=== PATIENT | female | born 1995 | race Native Hawaiian/Other Pacific Islander ===

== ENCOUNTER 2018-04-14 20:33 | Emergency (ER) | payer SELFPAY ==
[2018-04-14 22:52] LABS: A TYPE INFLUENZA AG NEGATIVE (NEGATIVE); B INFLUENZA AG NEGATIVE (NEGATIVE)
[2018-04-14] MEDS ORDERED: ACETAMINOPHEN WITH CODEINE #3 TABLET PO STA (23:01)
--- NOTE | 2018-04-14 23:01 | ER Document Report ---
ED Flu Like - General Chief Complaint: Flu Symptoms Stated Complaint: SORE THROAT Time Seen by Provider: 04/14/18 21:52 Mode of Arrival: Ambulatory Information source: Patient Notes: Patient is a 22-year-old female comes emergency room complaining of fever times 3 days with a cough and vomiting. Patient states she coughs so hard on the way over here that she vomited in her car. She has had a stuffy congested nose and a sore throat for the past 3 days. She states her fevers were just because she felt warm she did not take an actual temperature. Patient denies smoking her last menstrual period was April 01 and she is currently on no control. TRAVEL OUTSIDE OF THE [place] IN LAST 30 DAYS: No - HPI Onset: Other - 3 days Timing/Duration: Persistent Quality of pain: Achy Severity: Moderate Pain Level: 3 Shortness of breath: Mild Associated symptoms: Chills, Nonproductive cough, Nausea, Vomiting, Rhinnorhea, Sinus pain/drainage, Shortness of breath, Sore throat Similar symptoms previously: No Recently seen / treated by doctor: No - Related Data Allergies/Adverse Reactions: No Known Allergies Allergy (Unverified 04/14/18 20:39) Past Medical History - General Information source: Patient - Social History Smoking Status: Never Smoker Cigarette use (# per day): No Chew tobacco use (# tins/day): No Smoking Education Provided: No Frequency of alcohol use: None Drug Abuse: None Lives with: Spouse/Significant other Family History: Reviewed & Not Pertinent Patient has suicidal ideation: No Patient has homicidal ideation: No Renal/ Medical History: Denies: Hx Peritoneal Dialysis Review of Systems - Review of Systems Constitutional: Fever, Malaise EENT: Nose congestion, Throat pain Cardiovascular: No symptoms reported Respiratory: Cough, Short of breath, Wheezing Gastrointestinal: Vomiting Genitourinary: No symptoms reported Female Genitourinary: No symptoms reported Musculoskeletal: No symptoms reported Skin: No symptoms reported Hematologic/Lymphatic: No symptoms reported Neurological/Psychological: No symptoms reported -: Yes All other systems reviewed and negative Physical Exam - Vital signs Vitals: Temp Pulse Resp BP Pulse Ox 98.3 F 83 16 125/63 99 04/14/18 20:40 04/14/18 20:40 04/14/18 20:40 04/14/18 20:40 04/14/18 20:40 Interpretation: Normal - Notes Notes: PHYSICAL EXAMINATION: GENERAL: Patient is a well-nourished well-developed 22-year-old female who is in no apparent distress on physical exam tonight. Patient appears somewhat uncomfortable but not ill-appearing. HEAD: Atraumatic, normocephalic. EYES: Pupils equal round and reactive to light, extraocular movements intact, conjunctiva are normal. ENT: Examination head and upper airway showed nasal mucosa to be erythematous and edematous with some rhinorrhea noted. Rhinorrhea is clear in color. It is moderately thick. Further examination shows some mild tenderness to palpation on the frontal maxillary sinuses. Bilateral ears are inspected and external canals have some cerumen in them but they do not obscured the TMs. The TMs appear slightly bulging with some erythema around the borders. The landmarks are slightly obscured with dullness. And air-fluid levels noted. Further evaluation of the oral cavity shows posterior pharynx to have moderate erythema there are bilateral tonsils that are appear somewhat inflamed and enlarged. There is no encroachment upon the uvula which is also erythematous and slightly enlarged. There is no exudate noted in any areas. NECK: Normal range of motion, supple without lymphadenopathy Auscultation patient's lung niño show she has bilateral breath sounds breath sounds moderately increased throughout with a faint inspiratory expiratory wheeze noted. There is no rhonchi or rales heard. HEART: Regular rate and rhythm without murmurs ABDOMEN: Soft, nontender, nondistended abdomen. No guarding, no rebound. No masses appreciated. Female : deferred Musculoskeletal: Normal range of motion, no pitting or edema. No cyanosis. NEUROLOGICAL: Normal speech, normal gait. Normal sensory, motor exams PSYCH: Normal mood, normal affect. SKIN: Warm, Dry, normal turgor, no rashes or lesions noted. Course - Re-evaluation Re-evalutation: 04/15/18 01:59 I discussed with patient that if her strep came back negative which it was probably certain it would that we would treat her for a viral type of a presentation pharyngitis with wheeze. That is exactly what did transpire. I have given patient a steroid taper for the wheeze and the inflammation of the nose and throat. And Sudafed to dry up the head and a Tylenol 3 tablets for cough suppression. Patient is in agreement with this and will go home and go to bed. - Vital Signs Vital signs: Temp Pulse Resp BP Pulse Ox 98.0 F 84 16 120/71 99 04/14/18 23:22 04/14/18 23:22 04/14/18 23:22 04/14/18 23:22 04/14/18 23:22 Discharge - Discharge Clinical Impression: Upper respiratory infection, viral Condition: Stable Disposition: HOME, SELF-CARE Instructions: Acetaminophen, Viral Syndrome ([facility]) Additional Instructions: As informed you that if the swabs came back negative we are going to treat you for a viral upper respiratory infection. This is a type of thing he does not need antibiotics. We treat the symptoms first and the rest should fall in order. Most will run their course on their own within 4-5 days. Given that you are having such difficult time with this we will put you on a low steroid taper for the inflammation in your throat and some of the all-time medication called Sudafed to dry eyes everything up really good. You can use nasal saline 3-4 times a day to keep the nose moist and her secretions thin. I am also placing him on some Tylenol 3 these are Tylenol with codeine pills they worked excellent for the cough which would stop you from the getting into the vomiting. You can take 1-2 tablets every 6 hours as needed for the cough. Should you have any concerns or problems return to ER for recheck. Prescriptions: Acetaminophen with Codeine [Tylenol #3 Tablet] 1 each PO Q6 PRN #16 tablet PRN Reason: Prednisone 5 mg PO ASDIR 6 Days #1 tab.ds.pk Pseudoephedrine HCl [Sudafed 12 Hour] 120 mg PO BID #20 tablet.er Forms: Parent Work Note, Return to Work Referrals: [facility] [NO LOCAL MD] - Follow up as needed
[2018-04-14] MEDS ORDERED: PREDNISONE 20 MG TABLET PO ONE (23:02)
[2018-04-14] MEDS ORDERED: ONDANSETRON 4 MG TAB.RAPDIS PO ONE (23:02)
[2018-04-14 23:23] VITALS: BP 120/71
== END 2018-04-14 23:23 | disposition home or self-care (01) ==
LOC: ER 20:33
DX: J06.9 Acute upper respiratory infection, unspecified (principal); B97.89 Other viral agents as the cause of diseases classified elsewhere; J02.9 Acute pharyngitis, unspecified; R05 Cough; R09.81 Nasal congestion; R11.2 Nausea with vomiting, unspecified; J34.89 Other specified disorders of nose and nasal sinuses; R06.02 Shortness of breath; R53.81 Other malaise; R50.9 Fever, unspecified; R06.2 Wheezing; H61.23 Impacted cerumen, bilateral
CPT/HCPCS: 99283; 87070; 87880; 87077; 87804; S0119; J7512

== ENCOUNTER 2018-06-27 12:28 | Emergency (ER) | payer OTHER, MEDICAID ==
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
[2018-06-27 13:34] LABS: ABSOLUTE EOSINOPHILS # (AUTO) 0.1 10^3/uL (0.0-0.6); ABSOLUTE LYMPHOCYTES (AUTO) 1.8 10^3/uL (0.5-4.7); ABSOLUTE MONOCYTES (AUTO) 0.3 10^3/uL (0.1-1.4); BASOPHILS % (AUTO) 0.3 % (0-2); HEMATOCRIT 39.9 % (36.0-47.0); HEMOGLOBIN 13.6 g/dL (12.0-15.5); LYMPHOCYTES % (AUTO) 28.9 % (13-45); MEAN CORPUSCULAR HGB CONC 34.1 g/dL (32.0-36.0); MEAN CORPUSCULAR VOLUME 82 fl (80-97); MONOCYTES % (AUTO) 5.5 % (3-13); PLATELET COUNT 267 10^3/uL (150-450); RED BLOOD COUNT 4.85 10^6/uL (3.72-5.28); RED CELL DISTRIBUTION WIDTH 14.3 % (11.5-14.0); SEGMENTED NEUTROPHILS % (AUTO) 64.3 % (42-78); TOTAL CELLS COUNTED % (AUTO) 100 %; WHITE BLOOD COUNT 6.2 10^3/uL (4.0-10.5)
[2018-06-27 13:40] LABS: APPEARANCE,URINE CLOUDY; BILIRUBIN,URINE NEGATIVE (NEGATIVE); COLOR,URINE RED; GLUCOSE, URINE NEGATIVE (NEGATIVE); KETONES,URINE NEGATIVE (NEGATIVE); LEUKOCYTE ESTERASE,URINE MODERATE (NEGATIVE); NITRITE,URINE NEGATIVE (NEGATIVE); PROTEIN,URINE 100 mg/dL (NEGATIVE); URINE SPECIFIC GRAVITY 1.027
[2018-06-27 13:51] LABS: ALANINE AMINOTRANSFERASE 31 U/L (9-52); ALBUMIN 4.9 g/dL (3.5-5.0); ALKALINE PHOSPHATASE 70 U/L (38-126); ANION GAP 9 (5-19); ASPARTATE AMINO TRANSFERASE 21 U/L (14-36); BILIRUBIN,DIRECT 0.1 mg/dL (0.0-0.4); BILIRUBIN,TOTAL 0.5 mg/dL (0.2-1.3); BLOOD UREA NITROGEN 16 mg/dL (7-20); CALCIUM 10.1 mg/dL (8.4-10.2); CARBON DIOXIDE 28 mmol/L (22-30); CHLORIDE 108 mmol/L (98-107); GLUCOSE 107 mg/dL (75-110); POTASSIUM 4.1 mmol/L (3.6-5.0)
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
[2018-06-27 15:35] VITALS: BP 122/76
== END 2018-06-27 15:35 | disposition home or self-care (01) ==
LOC: ER 12:28
DX: Z04.1 Encounter for examination and observation following transport accident (principal); N94.6 Dysmenorrhea, unspecified; R10.2 Pelvic and perineal pain
CPT/HCPCS: 36415; 76857; 80053; 81001; 81025; 85025; 87086; 93976; 99284

== ENCOUNTER 2018-11-01 19:12 | Emergency (ER) | payer SELFPAY ==
[2018-11-01] MEDS ORDERED: IBUPROFEN 800 MG TABLET PO ONE (20:11)
--- NOTE | 2018-11-01 20:12 | ER Document Report ---
ED Medical Screen (RME) - General Chief Complaint: Vaginal Bleeding Stated Complaint: CRAMPING Time Seen by Provider: 11/01/18 20:08 Mode of Arrival: Ambulatory Information source: Patient Notes: Patient presents to the emergency department with complaints of extreme cramping for the past 2 weeks. Reports it started and stopped. She reports cramping to the right side and moved to the left side. She reports urinary frequency. Denies . No other complaints such as fever vomiting diarrhea. I have greeted and performed a rapid initial assessment of this patient. A comprehensive ED assessment and evaluation of the patient, analysis of test results and completion of the medical decision making process will be conducted by additional ED providers. Dictation of this chart was performed using voice recognition software; therefore, there may be some unintended grammatical errors. TRAVEL OUTSIDE OF THE [place] IN LAST 30 DAYS: No - Related Data Allergies/Adverse Reactions: No Known Allergies Allergy (Unverified 04/14/18 20:39) Past Medical History - General Last Menstrual Period: 10/10/18 - Social History Chew tobacco use (# tins/day): No Frequency of alcohol use: Rare Renal/ Medical History: Denies: Hx Peritoneal Dialysis Physical Exam - Vital signs Vitals: Temp Pulse Resp BP Pulse Ox 98.6 F 84 16 129/59 H 99 11/01/18 19:29 11/01/18 19:29 11/01/18 19:29 11/01/18 19:29 11/01/18 19:29 Course - Vital Signs Vital signs: Temp Pulse Resp BP Pulse Ox 98.6 F 84 16 129/59 H 99 11/01/18 19:29 11/01/18 19:29 11/01/18 19:29 11/01/18 19:29 11/01/18 19:29
[2018-11-01 20:43] LABS: ABSOLUTE EOSINOPHILS # (AUTO) 0.1 10^3/uL (0.0-0.6); ABSOLUTE LYMPHOCYTES (AUTO) 2.5 10^3/uL (0.5-4.7); ABSOLUTE MONOCYTES (AUTO) 0.6 10^3/uL (0.1-1.4); ABSOLUTE NEUT (AUTO) 5.5 10^3/uL (1.7-8.2); BASOPHILS % (AUTO) 0.4 % (0-2); EOSINOPHILS % (AUTO) 1.3 % (0-6); HEMATOCRIT 39.9 % (36.0-47.0); HEMOGLOBIN 13.1 g/dL (12.0-15.5); LYMPHOCYTES % (AUTO) 28.7 % (13-45); MEAN CORPUSCULAR HGB CONC 32.8 g/dL (32.0-36.0); MEAN CORPUSCULAR VOLUME 82 fl (80-97); MONOCYTES % (AUTO) 6.4 % (3-13); PLATELET COUNT 294 10^3/uL (150-450); RED BLOOD COUNT 4.84 10^6/uL (3.72-5.28); RED CELL DISTRIBUTION WIDTH 13.9 % (11.5-14.0); SEGMENTED NEUTROPHILS % (AUTO) 63.2 % (42-78); TOTAL CELLS COUNTED % (AUTO) 100 %; WHITE BLOOD COUNT 8.7 10^3/uL (4.0-10.5)
[2018-11-01 21:06] LABS: APPEARANCE,URINE CLEAR; BILIRUBIN,URINE NEGATIVE (NEGATIVE); COLOR,URINE YELLOW; GLUCOSE, URINE NEGATIVE (NEGATIVE); KETONES,URINE NEGATIVE (NEGATIVE); LEUKOCYTE ESTERASE,URINE LARGE (NEGATIVE); NITRITE,URINE NEGATIVE (NEGATIVE); PROTEIN,URINE NEGATIVE (NEGATIVE); URINE SPECIFIC GRAVITY 1.022
[2018-11-01 21:10] LABS: ALANINE AMINOTRANSFERASE 18 U/L (9-52); ALBUMIN 4.6 g/dL (3.5-5.0); ALKALINE PHOSPHATASE 68 U/L (38-126); ANION GAP 9 (5-19); ASPARTATE AMINO TRANSFERASE 19 U/L (14-36); BILIRUBIN,DIRECT 0.2 mg/dL (0.0-0.4); BILIRUBIN,TOTAL 0.3 mg/dL (0.2-1.3); BLOOD UREA NITROGEN 9 mg/dL (7-20); CALCIUM 9.9 mg/dL (8.4-10.2); CARBON DIOXIDE 26 mmol/L (22-30); CHLORIDE 105 mmol/L (98-107); GLUCOSE 98 mg/dL (75-110); POTASSIUM 3.7 mmol/L (3.6-5.0); SODIUM 139.6 mmol/L (137-145); TOTAL PROTEIN 7.6 g/dL (6.3-8.2)
[2018-11-01] MEDS ORDERED: CEFTRIAXONE 1 GM/D5W RTU 1 GM/50 ML RTUPB IV ONE (22:24)
--- NOTE | 2018-11-01 22:26 | ER Document Report ---
ED GI/ - General Chief Complaint: Vaginal Bleeding Stated Complaint: CRAMPING Time Seen by Provider: 11/01/18 20:08 Primary Care Provider: ANNA SULLIVAN MD [ACTIVE STAFF] - Follow up as needed KAREN ASENCIO MD [Primary Care Provider] - Follow up as needed Mode of Arrival: Ambulatory Information source: Patient TRAVEL OUTSIDE OF THE [place] IN LAST 30 DAYS: No - HPI Patient complains to provider of: Vaginal bleeding, Other - Lower abdominal cramps. Timing/Duration: Gradual Quality of pain: Cramping Severity at maximum: Mild Severity in ED: Mild Pain Level: Denies Vaginal bleeding (Compared to normal period): Spotting OB ultrasound done: No vitamins taken: No Sexual history: Active Associated symptoms: None Exacerbated by: Denies Relieved by: Denies Similar symptoms previously: No Recently seen / treated by doctor: No - Related Data Allergies/Adverse Reactions: No Known Allergies Allergy (Unverified 04/14/18 20:39) Past Medical History - General Information source: Patient Last Menstrual Period: 10/10/18 - Social History Smoking Status: Never Smoker Chew tobacco use (# tins/day): No Frequency of alcohol use: Rare Family History: Reviewed & Not Pertinent Patient has suicidal ideation: No Patient has homicidal ideation: No Renal/ Medical History: Denies: Hx Peritoneal Dialysis Review of Systems - Review of Systems Constitutional: No symptoms reported EENT: No symptoms reported Cardiovascular: No symptoms reported Respiratory: No symptoms reported Gastrointestinal: No symptoms reported Genitourinary: No symptoms reported Female Genitourinary: Vaginal bleeding Musculoskeletal: No symptoms reported Skin: No symptoms reported Hematologic/Lymphatic: No symptoms reported Neurological/Psychological: No symptoms reported -: Yes All other systems reviewed and negative Physical Exam - Vital signs Vitals: Temp Pulse Resp BP Pulse Ox 98.6 F 84 16 129/59 H 99 11/01/18 19:29 11/01/18 19:29 11/01/18 19:29 11/01/18 19:29 11/01/18 19:29 Interpretation: Normal - General General appearance: Appears well, Alert - HEENT Head: Normocephalic, Atraumatic Eyes: Normal Pupils: PERRL - Respiratory Respiratory status: No respiratory distress Chest status: Nontender Breath sounds: Normal Chest palpation: Normal - Cardiovascular Rhythm: Regular Heart sounds: Normal auscultation Murmur: No - Abdominal Inspection: Normal Distension: No distension Bowel sounds: Normal Tenderness: Nontender Organomegaly: No organomegaly - Genitourinary External exam: Normal Speculum exam: Normal, Cervix closed. No: Vaginal discharge, Vaginal laceration s Vaginal bleeding: None Bimanuel exam: Normal. 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 - Back Back: Normal, Nontender - Extremities General upper extremity: Normal inspection, Nontender, Normal color, Normal ROM, Normal temperature General lower extremity: Normal inspection, Nontender, Normal color, Normal ROM, Normal temperature, Normal weight bearing. No: Lee's sign - Neurological Neuro grossly intact: Yes Cognition: Normal Orientation: AAOx4 [place] Coma Scale Eye Opening: Spontaneous [place] Coma Scale Verbal: Oriented [place] Coma Scale Motor: Obeys Commands [place] Coma Scale Total: 15 Speech: Normal Motor strength normal: LUE, RUE, LLE, RLE Sensory: Normal - Psychological Associated symptoms: Normal affect, Normal mood - Skin Skin Temperature: Warm Skin Moisture: Dry Skin Color: Normal Course - Vital Signs Vital signs: Temp Pulse Resp BP Pulse Ox 98.6 F 88 16 126/72 H 100 11/01/18 19:29 11/02/18 01:48 11/02/18 01:48 11/02/18 01:48 11/02/18 01:48 - Laboratory Result Diagrams: 11/01/18 20:26 11/01/18 20:26 Laboratory results interpreted by me: 11/01/18 11/01/18 11/01/18 20:26 20:26 20:26 Serum HCG, Qual POSITIVE H Beta HCG, Quant 1498.80 H Urine Urobilinogen 8.0 H Ur Leukocyte Esterase LARGE H - Diagnostic Test Radiology reviewed: Reports reviewed Discharge - Discharge Clinical Impression: Early stage of , , threatened, early UTI (urinary tract infection) Qualifiers: Urinary tract infection type: acute cystitis Hematuria presence: without hematuria Qualified Code(s): N30.00 - Acute cystitis without hematuria Condition: Stable Disposition: HOME, SELF-CARE Instructions: ([facility]), Threatened Abortions ( Patients), Urinary Tract Infection ([facility]) Additional Instructions: Please follow-up with the poultry hanger Dr. Anna Sullivan on Matthias morning. Return to the emergency room if your condition worsens. Prescriptions: Cephalexin Monohydrate [Keflex 500 mg Capsule] 500 mg PO Q8H 10 Days #30 capsule Pnv No.95/Ferrous Fum/Folic AC [ Vitamins Tablet] 1 each PO DAILY #30 tablet Promethazine HCl [Phenergan 25 mg Tablet] 25 mg PO Q8H PRN #15 tablet PRN Reason: nausea and vomiting Referrals: KAREN ASENCIO MD [Primary Care Provider] - Follow up as needed ANNA SULLIVAN MD [ACTIVE STAFF] - Follow up as needed
[2018-11-01 22:38] LABS: PROTHROMBIN TIME 13.2 SEC (11.4-15.4)
[2018-11-01 22:39] LABS: PARTIAL THROMBOPLASTIN TIME 29.6 SEC (23.5-35.8)
[2018-11-01 23:04] LABS: RBCS (WET MOUNT) NO RBCS SEEN; T.VAGINALIS (WET MOUNT) NO TRICHOMONAS SEEN; WBCS (WET MOUNT) NO WBCS SEEN; YEAST (WET MOUNT) NO YEAST SEEN
--- NOTE | 2018-11-01 23:26 | RADIOLOGY REPORT (SQ) ---
US PELVIS EXAM DATE: 11/01/2018 10:24 PM CDT HISTORY: Early . Pelvic pain. COMPARISON: None. TECHNIQUE: Grayscale, color Doppler, and spectral Doppler ultrasound images of the pelvis were obtained. FINDINGS: There is an intrauterine gestational sac with a mean sac diameter of 0.46 cm corresponding to 5 weeks 2 days of . No yolk sac or pole is seen at this time. The ovaries are normal in size and contain normal follicles. Normal color Doppler blood flow is seen in both ovaries. The cervix is 3.3 cm in length. IMPRESSION: Early intrauterine gestational sac corresponding to 5 weeks 2 days of . No yolk sac or pole is seen at this time. Findings may represent early . Recommend short-term follow-up ultrasound imaging.
[2018-11-01] MEDS ORDERED: CEPHALEXIN 500 MG CAPSULE PO ONE (23:59)
[2018-11-02 00:44] LABS: CHLAM PCR NOT DETECTED (NOT DETECT)
[2018-11-02 01:49] VITALS: BP 126/72
== END 2018-11-02 01:48 | disposition home or self-care (01) ==
LOC: ER 19:12
DX: O23.11 Infections of bladder in pregnancy, first trimester (principal); N30.00 Acute cystitis without hematuria; O20.0 Threatened abortion; O26.891 Other specified pregnancy related conditions, first trimester; R10.30 Lower abdominal pain, unspecified; Z3A.00 Weeks of gestation of pregnancy not specified
CPT/HCPCS: 36415; 76817; 80053; 81001; 84702; 84703; 85025; 85610; 85730; 86900; 86901; 87086; 87088; 87186; 87210; 87491; 87591; 93976; 99284

== ENCOUNTER 2018-11-10 18:40 | Emergency (ER) | payer SELFPAY ==
[2018-11-10 18:45] VITALS: BP 129/60
--- NOTE | 2018-11-10 19:53 | ER Document Report ---
ED Medical Screen (RME) - General Chief Complaint: OB Problem (<20wks) Stated Complaint: VAGINAL BLEEDING Time Seen by Provider: 11/10/18 19:47 Primary Care Provider: KAREN ASENCIO MD [Primary Care Provider] - Follow up as needed Mode of Arrival: Ambulatory Information source: Patient Notes: This 23-year-old female G1, P0 presents today with complaints of vaginal bleeding. Patient reports she is been bleeding for the last 3 days. She reports she was just standing there today at the drive-through and she had a gush of blood and some clots. Denies abdominal cramping. Denies other symptoms such as fever vomiting diarrhea. Denies trauma. I have greeted and performed a rapid initial assessment of this patient. A comprehensive ED assessment and evaluation of the patient, analysis of test results and completion of the medical decision making process will be conducted by additional ED providers. Dictation of this chart was performed using voice recognition software; therefore, there may be some unintended grammatical errors. TRAVEL OUTSIDE OF THE [place] IN LAST 30 DAYS: No - Related Data Allergies/Adverse Reactions: No Known Allergies Allergy (Verified 11/10/18 18:41) Past Medical History Renal/ Medical History: Denies: Hx Peritoneal Dialysis Physical Exam - Vital signs Vitals: Temp Pulse Resp BP Pulse Ox 98.1 F 81 16 129/60 H 98 11/10/18 18:44 11/10/18 18:44 11/10/18 18:44 11/10/18 18:44 11/10/18 18:44 Course - Vital Signs Vital signs: Temp Pulse Resp BP Pulse Ox 98.1 F 81 16 129/60 H 98 11/10/18 18:44 11/10/18 18:44 11/10/18 18:44 11/10/18 18:44 11/10/18 18:44 Doctor's Discharge - Discharge Referrals: KAREN ASENCIO MD [Primary Care Provider] - Follow up as needed
[2018-11-10 20:19] LABS: ABSOLUTE EOSINOPHILS # (AUTO) 0.1 10^3/uL (0.0-0.6); ABSOLUTE LYMPHOCYTES (AUTO) 2.4 10^3/uL (0.5-4.7); ABSOLUTE MONOCYTES (AUTO) 0.4 10^3/uL (0.1-1.4); ABSOLUTE NEUT (AUTO) 5.7 10^3/uL (1.7-8.2); BASOPHILS % (AUTO) 0.3 % (0-2); HEMATOCRIT 38.6 % (36.0-47.0); HEMOGLOBIN 12.8 g/dL (12.0-15.5); LYMPHOCYTES % (AUTO) 27.5 % (13-45); MEAN CORPUSCULAR HEMOGLOBIN 27.5 pg (27.0-33.4); MEAN CORPUSCULAR HGB CONC 33.2 g/dL (32.0-36.0); MEAN CORPUSCULAR VOLUME 83 fl (80-97); MONOCYTES % (AUTO) 4.9 % (3-13); PLATELET COUNT 245 10^3/uL (150-450); RED BLOOD COUNT 4.66 10^6/uL (3.72-5.28); RED CELL DISTRIBUTION WIDTH 14.3 % (11.5-14.0); SEGMENTED NEUTROPHILS % (AUTO) 66.3 % (42-78); TOTAL CELLS COUNTED % (AUTO) 100 %; WHITE BLOOD COUNT 8.5 10^3/uL (4.0-10.5)
[2018-11-10 20:37] LABS: ALANINE AMINOTRANSFERASE 36 U/L (9-52); ALBUMIN 4.8 g/dL (3.5-5.0); ALKALINE PHOSPHATASE 70 U/L (38-126); ANION GAP 12 (5-19); ASPARTATE AMINO TRANSFERASE 29 U/L (14-36); BILIRUBIN,DIRECT 0.1 mg/dL (0.0-0.4); BILIRUBIN,TOTAL 0.4 mg/dL (0.2-1.3); BLOOD UREA NITROGEN 13 mg/dL (7-20); CALCIUM 9.6 mg/dL (8.4-10.2); CARBON DIOXIDE 24 mmol/L (22-30); CHLORIDE 104 mmol/L (98-107); GLUCOSE 96 mg/dL (75-110); POTASSIUM 3.9 mmol/L (3.6-5.0); SODIUM 140.2 mmol/L (137-145); TOTAL PROTEIN 7.9 g/dL (6.3-8.2)
--- NOTE | 2018-11-10 22:19 | RADIOLOGY REPORT (SQ) ---
EXAM DESCRIPTION: US TRANSVAGINAL COMPLETED DATE/TME: 11/10/2018 19:51 CLINICAL HISTORY: 23 years, Female, vag bleed preg COMPARISON: Prior study from 11/01/2018 TECHNIQUE: Axial 2-D grayscale images of the pelvis were performed. Doppler was utilized. LIMITATIONS: None. FINDINGS: Uterus measures 9.2 x 5.4 x 6.8 cm in size. A single intrauterine gestational sac is identified. Mean sac diameter is 1.09 cm for an estimated gestational age of five weeks and six days. A yolk sac is present though a pole is not currently visible. Cervix is closed, measuring 3.3 cm in length. Right ovary measures 3.1 x 2.5 x 3.5 cm in size. It demonstrates normal echogenicity as well as normal low resistance arterial waveforms/venous flow. The left ovary was not visualized. No significant free fluid is identified. IMPRESSION: Single intrauterine gestational sac, as above described, specifically measuring five weeks and six days. Yolk sac is present though no pole is identified. Continued surveillance and correlation with serial beta hCGs is suggested. copyright 2010 [email or web address]- All Rights Reserved
--- NOTE | 2018-11-10 23:56 | ER Document Report ---
ED General - General Chief Complaint: OB Problem (<20wks) Stated Complaint: VAGINAL BLEEDING Time Seen by Provider: 11/10/18 19:47 Primary Care Provider: KAREN ASENCIO MD [Primary Care Provider] - Follow up as needed Mode of Arrival: Ambulatory Notes: 23-year-old female G1, P0 presents today with complaints of vaginal bleeding. Patient reports she is been bleeding for the last 3 days. She reports she was just standing there today at the drive-through and she had a gush of blood and s ome clots. Since then her bleeding has become very minimal. Denies abdominal cramping. Denies other symptoms such as fever, acute shortness of breath or chest pain, vomiting, diarrhea. Denies trauma. TRAVEL OUTSIDE OF THE [place] IN LAST 30 DAYS: No - Related Data Allergies/Adverse Reactions: No Known Allergies Allergy (Verified 11/10/18 18:41) Past Medical History - General Information source: Patient - Social History Smoking Status: Never Smoker Frequency of alcohol use: None Drug Abuse: None Family History: Reviewed & Not Pertinent Patient has suicidal ideation: No Patient has homicidal ideation: No Renal/ Medical History: Denies: Hx Peritoneal Dialysis Review of Systems - Review of Systems Constitutional: See HPI EENT: No symptoms reported Cardiovascular: No symptoms reported Respiratory: See HPI Gastrointestinal: See HPI Genitourinary: See HPI Female Genitourinary: See HPI Musculoskeletal: No symptoms reported Skin: No symptoms reported Hematologic/Lymphatic: No symptoms reported Neurological/Psychological: No symptoms reported Physical Exam - Vital signs Vitals: Temp Pulse Resp BP Pulse Ox 98.1 F 81 16 129/60 H 98 11/10/18 18:44 11/10/18 18:44 11/10/18 18:44 11/10/18 18:44 11/10/18 18:44 - Notes Notes: PHYSICAL EXAMINATION: Reviewed vital signs and charting by RN GENERAL: Alert, interacts well. No acute distress. HEAD: Normocephalic, atraumatic. EYES: Pupils equal and round. Extraocular movements intact. ENT: Oral mucosa moist, tongue midline. NECK: Full range of motion. Trachea midline. LUNGS: Clear to auscultation bilaterally, no wheezes, rales, or rhonchi. No respiratory distress. HEART: Regular rate and rhythm. No murmur ABDOMEN: soft, non-tender. No distention. Bowel sounds present EXTREMITIES: Moves all 4 extremities spontaneously. No edema, No cyanosis. PSYCH: Normal affect, normal mood. SKIN: Warm, dry, normal turgor. No rashes or lesions noted. Course - Re-evaluation Re-evalutation: 11/10/18 23:53 Patient presents with a mild amount of vaginal bleeding in the setting of an early first trimester . Transvaginal ultrasound visualized an intrauterine at this time. Quantitative beta hCG below the zone of to margination. No active bleeding at time of presentation. She is Rh positive. Patient's abdominal exam is otherwise benign without any focal tenderness. I do not suspect an acute appendicitis, pyelonephritis, cystitis, or bowel obstruction. At this time she does have a follow-up appointment [facility] with [facility].At this time will discharge with return precautions and follow-up recommendations. Verbal discharge instructions given a the bedside and opportunity for questions given. Medication warnings reviewed. Patient is in agreement with this plan and has verbalized understanding of return precautions and the need for primary care follow-up in the next 24-72 hours. 11/10/18 23:55 - Vital Signs Vital signs: Temp Pulse Resp BP Pulse Ox 98.1 F 81 16 129/60 H 98 11/10/18 18:44 11/10/18 18:44 11/10/18 18:44 11/10/18 18:44 11/10/18 18:44 - Laboratory Result Diagrams: 11/10/18 20:10 11/10/18 20:10 Laboratory results interpreted by me: 11/10/18 11/10/18 20:10 20:10 RDW 14.3 H Beta HCG, Quant 55525.00 H Discharge - Discharge Clinical Impression: Bleeding in early Condition: Good Disposition: HOME, SELF-CARE Additional Instructions: Your ultrasound today shows an intrauterine . Please follow closely with your primary care VICE PRESIDENT DIGITAL STRATEGIST. Please return if you develop severe abdominal pain, bleeding that goes through more than 2 pads for more than 2 hours, pass out, or have any other symptoms that are concerning to you. Please follow-up closely with your OBGYN regarding todays visit. Referrals: KAREN ASENCIO MD [Primary Care Provider] - Follow up as needed
== END 2018-11-11 00:05 | disposition home or self-care (01) ==
LOC: ER 18:40
DX: O20.9 Hemorrhage in early pregnancy, unspecified (principal); Z3A.01 Less than 8 weeks gestation of pregnancy
CPT/HCPCS: 36415; 76817; 80053; 84702; 85025; 86900; 86901; 99284

== ENCOUNTER → 2018-11-18 | Outpatient (CLI) | payer MEDICAID ==
--- NOTE | 2018-11-18 14:58 | RADIOLOGY REPORT (SQ) ---
EXAM DESCRIPTION: U/S [id number] TRNABD 1GES W/ODOP COMPLETED DATE/TIME: 11/18/2018 2:24 pm REASON FOR STUDY: Z34.01 ENCNTR FOR SUPRVSN OF NORMAL FIRST PREG, FIRST TRIMESTER Z34.01 ENCNTR FOR SUPRVSN OF NORMAL FIRST PREG, FIRST TRIMES COMPARISON: 11/10/2018. TECHNIQUE: Transabdominal static and realtime grayscale images acquired of the pelvis. Additional se lected spectral and color Doppler images recorded. All images stored on PACs. bHCG: Not applicable. CLINICAL DATES: 7 week 0 day. LIMITATIONS: None. FINDINGS: FETUS: Single Living intrauterine . ULTRASOUND EGA: 7 week 0 day. ULTRASOUND FABI: 07/07/2019. EFW: Not applicable less than 20 weeks. CRL: 0.98 cm. FHR: 143 beats per minute. SURVEY: No visualized anomalies. AMNIOTIC FLUID: Adequate amount. PLACENTA: Not yet developed due to early gestation. SUBCHORIONIC BLEED: No. SIZE OF BLEED: Not applicable. UTERUS: No masses. No anomalies. CERVICAL LENGTH: 3.6 cm. Closed. RIGHT ADNEXA: Normal ovary with normal vascular flow. No adnexal free fluid. No adnexal masses. LEFT ADNEXA: Normal ovary with normal vascular flow. No adnexal free fluid. No adnexal masses. FREE FLUID: None. OTHER: No other significant finding. IMPRESSION: LIVING INTRAUTERINE . EGA 7 WEEK 0 DAY. Trimester of : First trimester - 0 to 13 weeks. TECHNICAL DOCUMENTATION: JOB ID: [id number] [employer]- All Rights Reserved Reading location - IP/workstation name: [email or web address]
== END ==
LOC: RAD 13:24
PROVIDERS: ATTEND Midwife
DX: Z34.01 Encounter for supervision of normal first pregnancy, first trimester (principal)
CPT/HCPCS: 76801

== ENCOUNTER 2018-12-06 12:05 | Emergency (ER) | payer OTHER, MEDICAID ==
[2018-12-06] MEDS ORDERED: PYRIDOXINE HCL INJ 100 MG/1 ML VIAL IM ONE (12:36)
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
[2018-12-06 13:07] LABS: AMORPHOUS SEDIMENT,URINE TRACE /HPF; APPEARANCE,URINE CLEAR; BILIRUBIN,URINE NEGATIVE (NEGATIVE); COLOR,URINE YELLOW; GLUCOSE, URINE NEGATIVE (NEGATIVE); KETONES,URINE NEGATIVE (NEGATIVE); LEUKOCYTE ESTERASE,URINE NEGATIVE (NEGATIVE); NITRITE,URINE NEGATIVE (NEGATIVE); PROTEIN,URINE NEGATIVE (NEGATIVE); URINE SPECIFIC GRAVITY 1.019
--- NOTE | 2018-12-06 13:29 | RADIOLOGY REPORT (SQ) ---
EXAM DESCRIPTION: U/S RETROPERITON (RENAL/AORTA) COMPLETED DATE/TIME: 12/06/2018 1:16 pm REASON FOR STUDY: 9 weeks and right flank and pelvic pain COMPARISON: None. TECHNIQUE: Dynamic and static grayscale images acquired of the kidneys and bladder and recorded on P ACS. Additional selected color Doppler and spectral images recorded. LIMITATIONS: None. FINDINGS: RIGHT KIDNEY: Normal size. Normal echogenicity. No solid or suspicious masses. No hydronep hrosis. No calcifications. LEFT KIDNEY: Normal size. Normal echogenicity. No solid or suspicious masses. No hydronephrosis. No calcifications. BLADDER: No masses. OTHER FINDINGS: No other significant finding. IMPRESSION: NORMAL RENAL AND BLADDER ULTRASOUND. TECHNICAL DOCUMENTATION: JOB ID: [id number] [employer]- All Rights Reserved Reading location - IP/workstation name: [email or web address]
--- NOTE | 2018-12-06 13:41 | RADIOLOGY REPORT (SQ) ---
EXAM DESCRIPTION: U/S OB TRANSVAGINAL W/O DOP COMPLETED DATE/TIME: 12/06/2018 1:16 pm REASON FOR STUDY: 9 weeks and right flank and pelvic pain COMPARISON: 11/18/2018 TECHNIQUE: Transabdominal static and realtime grayscale images acquired of the pelvis. Additional se lected spectral and color Doppler images recorded. All images stored on PACs. bHCG: Pending. CLINICAL DATES: 9 weeks 4 days LIMITATIONS: None. FINDINGS: FETUS: Single Living intrauterine . ULTRASOUND EGA: 9 weeks 4 days ULTRASOUND FABI: 07/07/2019 EFW: Not applicable less than 20 weeks. CRL: 2.8 cm FHR: 162 beats per minute. SURVEY: No visualized anomalies. AMNIOTIC FLUID: Adequate amount. PLACENTA: Not yet developed due to early gestation. SUBCHORIONIC BLEED: No SIZE OF BLEED: Not applicable. UTERUS: No masses. No anomalies. CERVICAL LENGTH: 4.0 cm Closed. RIGHT ADNEXA: Normal ovary with normal vascular flow. No adnexal free fluid. No adnexal masses. LEFT ADNEXA: Normal ovary with normal vascular flow. No adnexal free fluid. No adnexal masses. FREE FLUID: None. OTHER: No other significant finding. IMPRESSION: LIVING INTRAUTERINE . EGA 9 weeks 4 days Trimester of : First trimester - 0 to 13 weeks. TECHNICAL DOCUMENTATION: JOB ID: [id number] 2010 [id number]- All Rights Reserved rev-09/12 Reading location - IP/workstation name: [email or web address]
[2018-12-06 14:19] VITALS: BP 124/65
== END 2018-12-06 14:11 | disposition home or self-care (01) ==
LOC: ER 12:05
DX: O26.891 Other specified pregnancy related conditions, first trimester (principal); R10.9 Unspecified abdominal pain; R51 Headache; O9A.211 Injury, poisoning and certain other consequences of external causes complicating pregnancy, first trimester; S00.83XA Contusion of other part of head, initial encounter; S00.33XA Contusion of nose, initial encounter; Z3A.09 9 weeks gestation of pregnancy; V43.62XA Car passenger injured in collision with other type car in traffic accident, initial encounter
CPT/HCPCS: 81001; 76817; 76770; J3415; 96372; 99284

== ENCOUNTER 2019-02-12 17:33 | Emergency (ER) | payer MEDICAID, OTHER ==
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
[2019-02-12 19:35] LABS: ABSOLUTE EOSINOPHILS # (AUTO) 0.1 10^3/uL (0.0-0.6); ABSOLUTE LYMPHOCYTES (AUTO) 1.8 10^3/uL (0.5-4.7); ABSOLUTE MONOCYTES (AUTO) 0.6 10^3/uL (0.1-1.4); BASOPHILS % (AUTO) 0.2 % (0-2); EOSINOPHILS % (AUTO) 0.6 % (0-6); HEMATOCRIT 38.6 % (36.0-47.0); HEMOGLOBIN 12.8 g/dL (12.0-15.5); LYMPHOCYTES % (AUTO) 15.5 % (13-45); MEAN CORPUSCULAR HEMOGLOBIN 27.2 pg (27.0-33.4); MEAN CORPUSCULAR HGB CONC 33.1 g/dL (32.0-36.0); MEAN CORPUSCULAR VOLUME 82 fl (80-97); MONOCYTES % (AUTO) 5.3 % (3-13); PLATELET COUNT 225 10^3/uL (150-450); SEGMENTED NEUTROPHILS % (AUTO) 78.4 % (42-78); TOTAL CELLS COUNTED % (AUTO) 100 %; WHITE BLOOD COUNT 11.5 10^3/uL (4.0-10.5)
[2019-02-12 19:56] LABS: ALBUMIN 4.1 g/dL (3.5-5.0); ALKALINE PHOSPHATASE 66 U/L (38-126); ANION GAP 12 (5-19); ASPARTATE AMINO TRANSFERASE 25 U/L (14-36); BILIRUBIN,DIRECT 0.1 mg/dL (0.0-0.4); BILIRUBIN,TOTAL 0.1 mg/dL (0.2-1.3); BLOOD UREA NITROGEN 9 mg/dL (7-20); CALCIUM 9.9 mg/dL (8.4-10.2); CARBON DIOXIDE 22 mmol/L (22-30); CHLORIDE 104 mmol/L (98-107); GLUCOSE 92 mg/dL (75-110); TOTAL PROTEIN 7.4 g/dL (6.3-8.2)
[2019-02-12 21:15] LABS: APPEARANCE,URINE CLEAR; BILIRUBIN,URINE NEGATIVE (NEGATIVE); COLOR,URINE YELLOW; GLUCOSE, URINE NEGATIVE (NEGATIVE); KETONES,URINE NEGATIVE (NEGATIVE); PROTEIN,URINE 30 mg/dL (NEGATIVE); URINE SPECIFIC GRAVITY 1.018
--- NOTE | 2019-02-12 23:22 | ER Document Report ---
ED Syncope and Near Syncope - General Chief Complaint: Fainting Stated Complaint: POSSIBLE SYNCOPE Time Seen by Provider: 02/12/19 18:09 Primary Care Provider: MALORIE PATEL MD [ACTIVE STAFF] - Follow up as needed Mode of Arrival: Ambulatory TRAVEL OUTSIDE OF THE [place] IN LAST 30 DAYS: No - HPI Patient complains to provider of: Fainting Episode witnessed (by whom): Yes - SIG OTHER Symptoms prior to episode: No: None, Abdominal pain, Back pain, Chest pain, Chills, Diarrhea, Dizziness, Fever, Headache, Hyperventilation, Lightheaded, Nausea/vomiting, Palpitations, Racing heart, Short of breath, Sweaty, Visual disturbance, Other Position/Activity at time of episode: Standing Quality of pain: denies: No pain, Achy, Burning, Cramping, Dull, Fullness, P ressure, Sharp, Stabbing, Throbbing, Other Context: Became unresponsive. denies: Almost passed out, Breathing shallow/stopped, Collapsed, Confused after event, [place] faint, Incontinent of stool, Incontinent of urine, Lost consciousness, Lost pulse, Low blood sugar, , Recent immobilization, Recent seizures, Recent travel, Seizure activity observed, Other Injury location: No: None, Abdomen, Back, Chest, Face, Head, Mouth, Neck, Tongue, LUE, LLE, RUE, RLE Current symptoms: None/feels back to normal. denies: Abdominal pain, Arm pain, Back pain, Breathing difficulty, Chest pain, Chills, Diarrhea, Dizziness, Fever, Headache, Lightheaded, Nausea, Neck pain, Shoulder pain, Short of breath, Sweaty, Vomiting, Weakness, Other Notes: Patient is a week OB patient who apparently did not eat at all or today and apparently was standing and became dizzy felt like she saw tunnel and then apparently SYCOPED. Rarely she fell back did not fall on her abdomen has had no abdominal pain vaginal bleeding cramps and feels back to normal. She said she ate some Ramen noodles afterwards that she felt her blood sugar was probably low and now feels back to normal also denies any pain shortness of breath headache or other complaints. Patient claims she is gone to the bathroom since and has had no bloody show or leakage in her panties of any fluid - Related Data Allergies/Adverse Reactions: No Known Allergies Allergy (Verified 11/10/18 18:41) Home Medications: vitamins Past Medical History - General Information source: Patient - Social History Smoking Status: Never Smoker Chew tobacco use (# tins/day): No Frequency of alcohol use: None Drug Abuse: None Family History: Reviewed & Not Pertinent Patient has suicidal ideation: No Patient has homicidal ideation: No Renal/ Medical History: Denies: Hx Peritoneal Dialysis - Immunizations Immunizations up to date: Yes Review of Systems - Review of Systems Constitutional: denies: No symptoms reported, See HPI, Chills, Diaphoresis, Fever, Malaise, Weakness, Other, Weight gain, Weight loss, Recent illness EENT: denies: No symptoms reported, See HPI, Eye pain, Eye discharge, Blurred vision, Tearing, Double vision, Ear pain, Ear discharge, Nose pain, Nose congestion, Nose discharge, Sinus pressure, Sinus discharge, Throat pain, Difficulty swallowing, Throat swelling, Mouth pain, Mouth swelling, Dental problem, Vertigo, Other Cardiovascular: denies: No symptoms reported, See HPI, Chest pain, Palpitations, Heart racing, Orthopnea, Dyspnea, Syncope, Dizziness, Lightheaded, Edema, Other, Paroxysmal Nocturnal Dysp Respiratory: denies: No symptoms reported, See HPI, Cough, Hurts to breathe, Hemoptysis, Short of breath, Sputum, Stridor, Wheezing, Other Gastrointestinal: denies: No symptoms reported, See HPI, Abdomen distended, Abdominal pain, Diarrhea, Nausea, Vomiting, Constipation, Blood streaked bowels, Poor appetite, Poor fluid intake, Blood in vomit, Black stools, Rectal bleeding, Last bowel movement, Fecal incontinence, Other Genitourinary: denies: No symptoms reported, See HPI, Burning, Dysuria, Discharge, Frequency, Flank pain, Hematuria, Incontinence, Pain, Urgency, Retention, Other Female Genitourinary: . denies: No symptoms reported, See HPI, Last menstrual period, Post menopausal, Heavy/abnormal periods, Irregular period, Vaginal bleeding, Vaginal discharge, Vaginal odor, Painful intercourse, Other Musculoskeletal: denies: No symptoms reported, See HPI, Back pain, Gout, Joint pain, Joint swelling, Muscle pain, Muscle stiffness, Neck pain, Deformity, Leg swelling, Ankle swelling, Other Neurological/Psychological: denies: No symptoms reported, See HPI, Confusion, Dementia, Depression, Hallucinations, Anxiety, Homicidal ideation, Sensory change, Weakness, Gait changes, Loss of power, Paralysis, Seizure, Lost consciousness, Headaches, Speech impairment, Numbness, Suicidal ideation, Tingling, Tremor, Other -: Yes All other systems reviewed and negative Physical Exam - Vital signs Vitals: Temp Pulse Resp BP Pulse Ox 97.8 F 76 18 139/69 H 100 02/12/19 17:55 02/12/19 17:55 02/12/19 17:55 02/12/19 17:55 02/12/19 17:55 Notes: PHYSICAL EXAMINATION: GENERAL: Well-appearing, well-nourished and in no acute distress. HEAD: Atraumatic, normocephalic. EYES: Pupils equal round and reactive to light, extraocular movements intact, sclera anicteric, conjunctiva are normal. ENT: nares patent, oropharynx clear without exudates. Moist mucous membranes. NECK: Normal range of motion, supple without lymphadenopathy LUNGS: Breath sounds clear to auscultation bilaterally and equal. No wheezes rales or rhonchi. HEART: Regular rate and rhythm without murmurs ABDOMEN: Soft, gravid, no pain to palpation no cramps or since felt sounds all quadrants EXTREMITIES: Normal range of motion, no pitting or edema. No cyanosis. NEUROLOGICAL: No focal neurological deficits. Moves all extremities spontaneously and on command. PSYCH: Normal mood, normal affect. SKIN: Warm, Dry, normal turgor, no rashes or lesions noted. Course - Vital Signs Vital signs: Temp Pulse Resp BP Pulse Ox 97.8 F 76 18 139/69 H 100 02/12/19 17:55 02/12/19 17:55 02/12/19 17:55 02/12/19 17:55 02/12/19 17:55 - Laboratory Result Diagrams: 02/12/19 19:01 02/12/19 19:01 Laboratory results interpreted by me: 02/12/19 02/12/19 02/12/19 18:15 19:01 19:01 WBC 11.5 H Absolute Neuts (auto) 9.0 H Seg Neutrophils % 78.4 H Creatinine 0.45 L POC Glucose 111 H Total Bilirubin 0.1 L Urine Protein Urine Urobilinogen Urine Ascorbic Acid 02/12/19 19:01 WBC Absolute Neuts (auto) Seg Neutrophils % Creatinine POC Glucose Total Bilirubin Urine Protein 30 H Urine Urobilinogen 4.0 H Urine Ascorbic Acid 20 H - EKG Interpretation by Me EKG shows normal: Sinus rhythm Rate: Normal - Transfer of Care Notes: 02/13/19 00:24 Note heart tones are 145 I do believe this is probably vasovagal syncope secondary to probable low glucose or low fluid and dehydration as patient had not eaten or drink today and is 20 weeks and dizzy and lightheaded before she fell down onto her back without any abdominal pain vaginal bleeding or fluid leakage with a good heart tones I think she can be safely discharged I explained to her the importance of eating small meals 6 a day when she is and to follow-up with her OB doctor return if any worse Discharge - Discharge Clinical Impression: vasal vagal syncope Condition: Good Disposition: HOME, SELF-CARE Additional Instructions: Return if you pass out again. Make sure that you eat 6 small meals a day more frequently also return if you have any increased abdominal pain vaginal bleeding or discharge or condition worsens follow-up with your OB doctor Referrals: MALORIE PATEL MD [ACTIVE STAFF] - Follow up as needed
[2019-02-13 00:50] VITALS: BP 115/53
--- NOTE | 2019-02-14 00:21 | EKG REPORT ---
SEVERITY:- NORMAL ECG - SINUS RHYTHM : Confirmed by: Eladia Suárez 14-Feb-2019 00:20:23
== END 2019-02-13 00:50 | disposition home or self-care (01) ==
LOC: ER 17:33
DX: O26.892 Other specified pregnancy related conditions, second trimester (principal); R55 Syncope and collapse; R42 Dizziness and giddiness; Z3A.20 20 weeks gestation of pregnancy; Z79.899 Other long term (current) drug therapy
CPT/HCPCS: 36415; 80053; 81001; 82962; 85025; 87086; 93005; 93010; 99284

== ENCOUNTER 2019-06-29 19:50 | Inpatient (IN) | payer MEDICAID ==
[2019-06-29] MEDS ORDERED: RINGERS SOLUTION,LACTATED 1,000 ML IV PRN (20:28)
[2019-06-29] MEDS ORDERED: RINGERS SOLUTION,LACTATED 1,000 ML IV ONE (20:28)
[2019-06-29] MEDS ORDERED: OXYTOCIN/NORMAL SALINE 20 UNIT/1,000 ML RTUINJ IV PRN (20:36)
[2019-06-29] MEDS ORDERED: DINOPROSTONE 10 MG VAGINAL INSERT.SR ONE (20:48)
[2019-06-29 21:01] LABS: ABSOLUTE EOSINOPHILS # (AUTO) 0.1 10^3/uL (0.0-0.6); ABSOLUTE LYMPHOCYTES (AUTO) 1.9 10^3/uL (0.5-4.7); ABSOLUTE MONOCYTES (AUTO) 0.7 10^3/uL (0.1-1.4); ABSOLUTE NEUT (AUTO) 10.9 10^3/uL (1.7-8.2); BASOPHILS % (AUTO) 0.1 % (0-2); EOSINOPHILS % (AUTO) 0.7 % (0-6); HEMOGLOBIN 11.9 g/dL (12.0-15.5); MEAN CORPUSCULAR HEMOGLOBIN 26.2 pg (27.0-33.4); MEAN CORPUSCULAR HGB CONC 33.1 g/dL (32.0-36.0); MEAN CORPUSCULAR VOLUME 79 fl (80-97); MONOCYTES % (AUTO) 5.4 % (3-13); PLATELET COUNT 224 10^3/uL (150-450); RED BLOOD COUNT 4.55 10^6/uL (3.72-5.28); RED CELL DISTRIBUTION WIDTH 13.8 % (11.5-14.0); SEGMENTED NEUTROPHILS % (AUTO) 79.8 % (42-78); TOTAL CELLS COUNTED % (AUTO) 100 %; WHITE BLOOD COUNT 13.6 10^3/uL (4.0-10.5)
[2019-06-29 23:15] LABS: APPEARANCE,URINE TURBID; BILIRUBIN,URINE NEGATIVE (NEGATIVE); COLOR,URINE YELLOW; GLUCOSE, URINE NEGATIVE (NEGATIVE); KETONES,URINE NEGATIVE (NEGATIVE); LEUKOCYTE ESTERASE,URINE LARGE (NEGATIVE); NITRITE,URINE NEGATIVE (NEGATIVE); PROTEIN,URINE 30 mg/dL (NEGATIVE); URINE SPECIFIC GRAVITY 1.029
[2019-06-29 23:30] LABS: URINE AMPHETAMINES SCREEN NEGATIVE; URINE BARBITURATES SCREEN NEGATIVE; URINE BENZODIAZEPINES SCREEN NEGATIVE; URINE COCAINE SCREEN NEGATIVE; URINE MARIJUANA (THC) SCREEN NEGATIVE; URINE METHADONE SCREEN NEGATIVE; URINE PHENCYCLIDINE SCREEN NEGATIVE
[2019-06-29] MEDS ORDERED: ZOLPIDEM TARTRATE 5 MG TABLET ONE (23:59)
[2019-06-30] MEDS ORDERED: MISOPROSTOL 0.2 MG TABLET ONE (00:23)
[2019-06-30] MEDS ORDERED: LIDOCAINE 1% INJ-PF (10 MG/ML) 30 ML SDV ONE (00:23)
[2019-06-30] MEDS ORDERED: OXYTOCIN 10 UNIT/ML VIAL ONE (00:23)
[2019-06-30] MEDS ORDERED: OXYTOCIN/NORMAL SALINE 20 UNIT/1,000 ML RTUINJ ONE (00:24)
--- NOTE | 2019-06-30 09:03 | Admission Physical ---
Datetime Report Generated by CPN: 06/30/2019 09:03 CURRENT ADMISSION Hx Assessment: The History has been Reviewed and is Current Chief Complaint: Scheduled Induction of Labor Indication for Induction: IUGR Admit Impression : Term, Intrauterine ; No Active Labor; Intact Membranes Admit Plan: Admit to Unit; Initiate Labor Induction Protocol ALLERGIES Medication Allergies: No Medication Allergies: No Known Allergies (11/10/2018) Latex: No Latex Allergies Food Allergies: Mint OBSTETRICAL HISTORY EDC: 07/07/2019 00:00 : 1 Para: 0 Gestational Diabetes: No Rh Sensitization: No Incompetent Cervix: No SELENA: No Infertility: No ART Treatment: No Uterine Anomaly: No IUGR: Yes Hx Previous C/S: No Macrosomia: No Hx Loss/Stillborn: No PIH: No Hx : No Placenta Previa/Abruption: No Depression/PP Depression: No PTL/PROM: No Post Hemorrhage: No Current Procedures: Ultrasound; NST Obstetrical History Comments: G1- current , IUGR SEE RECORDS Alcohol: No Marijuana : No Cocaine: No Other Illicit Drugs: No Cigarettes: Never Smoker. 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 Heart Disease: No Hosp/Surgery: No Autoimmune Disorder: No Anesthetic Complications: No Kidney Disease: Yes Abnormal Pap Smear: No Neuro/Epilepsy: No Psychiatric Disorders: No Other Medical Diseases: No Hepatitis/Liver Disease: No Significant Family History: No Varicosities/Phlebitis: No Trauma/Violence : No Thyroid Dysfunction: No Medical History Comments: UTI current INFECTIOUS HISTORY Gonorrhea: No Genital Herpes: No Chlamydia: No Tuberculosis: No Syphilis: No Hepatitis: No HIV/AIDS Exposure: No Rash or Viral Illness: No HPV: No PHYSICAL EXAM General: Normal HEENT: Normal Neurologic: Normal Thyroid: Deferred Heart: Normal Lungs: Normal Breast: Deferred Back: Normal Abdomen: Normal Genitourinary Exam: Normal Extremities: Normal DTRs: Normal Pelvic Type: Adequate Vital Signs: Reviewed; Within Normal Limits VAGINAL EXAM Dilatation: 1 Effacement: 50 Station: -3 MEMBRANES Membranes: Intact FETUS A Monitoring: External US FHR- Baseline: 125 Variability: Moderate 6-25bpm Accelerations: 15X15 Decelerations: None FHR Category: Category I Presentation: Vertex Admit Comment: 23yo at 39wga into L_D for IOL secondary to IUGR with EFW @ 5%ile @ 36wga. Pt is GBS negative, A positive, Rubella Non-immune with an ASCUS pap + HPV in 2019. Hx also significant for obesity. Pt as admitted last night and on cervidil at this time. Plan is to continue IOL this AM after cervidil Removal. Dr. Morton is the MD managed services consultant today and aware of plan. PLANS FOR LABOR AND DELIVERY Labor and Delivery: None Pain Management: Epidural Feeding Preference: Breast Benefit of Breast Feed Discussed: Yes Circumcision: Yes INFORMED CONSENT Assignment: Anna Morton MD Signature: with User ID: [email or web address] : with User ID: [email or web address]
[2019-06-30] MEDS ORDERED: MORPHINE SULFATE 10 MG/ML INJ ONE ×2 (11:58→19:56)
[2019-06-30] MEDS ORDERED: ONDANSETRON HCL INJ/PF 4 MG/2 ML SDV ONE (11:59)
[2019-06-30] MEDS ORDERED: MORPHINE SULFATE 10 MG/ML INJ IV ONE (12:15)
[2019-06-30] MEDS ORDERED: ONDANSETRON HCL INJ/PF 4 MG/2 ML SDV IV ONE (12:15)
[2019-06-30] MEDS ORDERED: ACETAMINOPHEN 325 MG TABLET ONE (21:28)
[2019-07-01] MEDS ORDERED: EPHEDRINE SULFATE INJ 50 MG/1 ML AMPULE ONE (01:06)
[2019-07-01] MEDS ORDERED: FENTANYL/BUPIVACAINE/NS/PF 300 MCG/150 ML RTUINJ EPI ONE (01:07)
[2019-07-01] MEDS ORDERED: BUPIVACAINE HCL 0.25 % INJ/PF (2.5 MG/1 ML) 30 ML VIAL ONE (01:07)
[2019-07-01] MEDS ORDERED: FENTANYL CITRATE INJ/PF 100 MCG/2 ML AMPUL ONE (01:22)
[2019-07-01] MEDS ORDERED: DIPH/PERTUSS(ACELL)/TETANUS VAC/PF 0.5 ML SYR (>=10YO) IM PRN (06:21)
[2019-07-01] MEDS ORDERED: MEASLES,MUMPS&RUBELLA VACC/PF 0.5 ML VIAL SUBCUT PRN (06:21)
[2019-07-01] MEDS ORDERED: MAGNESIUM HYDROXIDE SUSP 30 ML UDCUP PO PRN (06:21)
[2019-07-01] MEDS ORDERED: DIBUCAINE 1% OINTMENT 28 GM TP PRN (06:21)
[2019-07-01] MEDS ORDERED: ACETAMINOPHEN WITH CODEINE #3 TABLET PO PRN (06:21)
[2019-07-01] MEDS ORDERED: ACETAMINOPHEN 650 MG SUPP.RECT PR PRN (06:21)
[2019-07-01] MEDS ORDERED: ZOLPIDEM TARTRATE 5 MG TABLET PO PRN (06:21)
[2019-07-01] MEDS ORDERED: PSEUDOEPHEDRINE HCL 30 MG TABLET PO PRN (06:21)
[2019-07-01] MEDS ORDERED: GLYCERIN/WITCH HAZEL LEAF 1 EACH MED..WIPE TP PRN (06:21)
[2019-07-01] MEDS ORDERED: BENZOCAINE/MENTHOL AEROSOL SPRAY 56 ML TOP PRN (06:21)
[2019-07-01] MEDS ORDERED: NA PHOS,M-B/NA PHOS,DI-BA (ADULT) 133 ML ENEMA PR PRN (06:21)
[2019-07-01] MEDS ORDERED: OXYTOCIN/NORMAL SALINE 20 UNIT/1,000 ML RTUINJ IV PRN (06:21)
[2019-07-01] MEDS ORDERED: PROMETHAZINE HCL 25 MG TABLET PO PRN (06:21)
[2019-07-01] MEDS ORDERED: PROMETHAZINE HCL 25 MG SUPP.RECT PR PRN (06:21)
[2019-07-01] MEDS ORDERED: PROMETHAZINE HCL INJ 25 MG/1 ML VIAL IV PRN (06:21)
[2019-07-01] MEDS ORDERED: DIPHENHYDRAMINE HCL 25 MG CAPSULE PO PRN (06:21)
[2019-07-01] MEDS ORDERED: ACETAMINOPHEN 325 MG TABLET PO PRN (06:21)
[2019-07-01] MEDS ORDERED: OXYTOCIN/NORMAL SALINE 20 UNIT/1,000 ML RTUINJ ONE (06:37)
[2019-07-01] MEDS ORDERED: IBUPROFEN 800 MG TABLET PO ONE (06:45)
[2019-07-01] MEDS ORDERED: PRENATAL VITAMIN W DHA CAPSULE PO ONE (10:17)
[2019-07-01] MEDS ORDERED: DOCUSATE SODIUM 100 MG CAPSULE ONE (10:18)
[2019-07-01] MEDS ORDERED: IBUPROFEN 800 MG TABLET ONE (10:18)
[2019-07-01] MEDS ORDERED: FERROUS SULFATE 325 MG TABLET PO ONE (10:18)
[2019-07-01] MEDS: PRENATAL VITAMIN W DHA CAPSULE PO SCH (10:24)
[2019-07-01] MEDS: DOCUSATE SODIUM 100 MG CAPSULE PO SCH ×2 (10:24→17:18)
[2019-07-01] MEDS: FERROUS SULFATE 325 MG TABLET PO SCH ×2 (10:27→17:18)
[2019-07-01] MEDS ORDERED: FAMOTIDINE 20 MG TABLET ONE (10:31)
[2019-07-01] MEDS ORDERED: SENNOSIDES/DOCUSATE 8.6-50 MG 1 EACH TABLET ONE (10:31)
[2019-07-01] MEDS: FAMOTIDINE 20 MG TABLET PO SCH ×2 (10:32→21:53)
[2019-07-01] MEDS: SENNOSIDES/DOCUSATE 8.6-50 MG 1 EACH TABLET PO SCH (10:32)
[2019-07-01] MEDS: IBUPROFEN 800 MG TABLET PO SCH ×2 (14:03→21:54)
[2019-07-01] MEDS: ACETAMINOPHEN WITH CODEINE #3 TABLET PO PRN (20:34)
[2019-07-02] MEDS: ACETAMINOPHEN WITH CODEINE #3 TABLET PO PRN (00:36)
[2019-07-02] MEDS: IBUPROFEN 800 MG TABLET PO SCH ×3 (05:07→22:06)
[2019-07-02 06:19] LABS: HEMATOCRIT 33.1 % (36.0-47.0); HEMOGLOBIN 11.2 g/dL (12.0-15.5); MEAN CORPUSCULAR HEMOGLOBIN 26.9 pg (27.0-33.4); MEAN CORPUSCULAR HGB CONC 33.8 g/dL (32.0-36.0); MEAN CORPUSCULAR VOLUME 79 fl (80-97); PLATELET COUNT 215 10^3/uL (150-450); RED BLOOD COUNT 4.17 10^6/uL (3.72-5.28); RED CELL DISTRIBUTION WIDTH 14.5 % (11.5-14.0); WHITE BLOOD COUNT 17.5 10^3/uL (4.0-10.5)
[2019-07-02] MEDS: FAMOTIDINE 20 MG TABLET PO SCH ×2 (09:14→22:05)
[2019-07-02] MEDS: PRENATAL VITAMIN W DHA CAPSULE PO SCH (09:14)
[2019-07-02] MEDS: DOCUSATE SODIUM 100 MG CAPSULE PO SCH ×2 (09:14→17:16)
[2019-07-02] MEDS: FERROUS SULFATE 325 MG TABLET PO SCH ×2 (09:14→17:16)
[2019-07-02] MEDS: SENNOSIDES/DOCUSATE 8.6-50 MG 1 EACH TABLET PO SCH (09:14)
--- NOTE | 2019-07-02 12:08 | PDOC PROGRESS REPORT ---
Subjective-OB Progress Note for:: 07/02/19 Subjective: Doing well, no c/o, scant bleeding, breast/bottle feeding, eating well Physical Exam (OB) Vital Signs: Temp Pulse Resp BP Pulse Ox 97.7 F 87 16 109/62 98 07/02/19 07:23 07/02/19 07:23 07/02/19 07:23 07/02/19 07:23 07/02/19 07:23 Intake & Output 07/01/19 07/02/19 07/03/19 06:59 06:59 06:59 Intake Total 1700 Balance 1700 - PIH/Pre-Eclampsia Headache: Absent Epigastric Pain: No Visual Changes: No - Lochia Lochia Amount: Scant < 10 ml Lochia Color: Rubra/Red - Abdomen Description: Soft, Round Hernia Present: No Fundal Description: Firm, Midline Fundal Height: u/u - u/2 Objective-Diagnostic Laboratory: 07/02/19 05:57 07/02/19 05:57 WBC 17.5 H RBC 4.17 Hgb 11.2 L Hct 33.1 L MCV 79 L MCH 26.9 L MCHC 33.8 RDW 14.5 H Plt Count 215 Assessment and Plan(PN) - Assessment and Plan (1) Vaginal delivery Is this a current diagnosis for this admission?: Yes (2) Encounter for induction of labor Is this a current diagnosis for this admission?: Yes (3) Intrauterine growth restriction (IUGR) affecting care of mother Qualifiers: Fetus number: single or unspecified fetus Is this a current diagnosis for this admission?: Yes - Time Spent with Patient Time with patient: Less than 15 minutes Medications reviewed and adjusted accordingly: Yes - Disposition Anticipated Discharge: Home Within: within 24 hours
[2019-07-03] MEDS: IBUPROFEN 800 MG TABLET PO SCH ×2 (05:34→08:03)
[2019-07-03] MEDS: FAMOTIDINE 20 MG TABLET PO SCH (10:37)
[2019-07-03] MEDS: SENNOSIDES/DOCUSATE 8.6-50 MG 1 EACH TABLET PO SCH (10:38)
[2019-07-03] MEDS: PRENATAL VITAMIN W DHA CAPSULE PO SCH (10:38)
[2019-07-03] MEDS: FERROUS SULFATE 325 MG TABLET PO SCH (10:38)
[2019-07-03] MEDS: DOCUSATE SODIUM 100 MG CAPSULE PO SCH (10:38)
--- NOTE | 2019-07-03 11:35 | PDOC PROGRESS REPORT ---
Subjective-OB Progress Note for:: 07/03/19 Subjective: baby in room, mom preparing for discharge, her mother is holding baby, breast and bottle feeding, scant bleeding Physical Exam (OB) Vital Signs: Temp Pulse Resp BP Pulse Ox 97.8 F 88 16 125/69 100 07/03/19 07:55 07/03/19 07:55 07/03/19 07:55 07/02/19 19:47 07/03/19 07:55 Intake & Output 07/02/19 07/03/19 07/04/19 06:59 06:59 07:59 Intake Total 1700 Balance 1700 - PIH/Pre-Eclampsia Headache: Absent Epigastric Pain: No Visual Changes: No - Lochia Lochia Amount: Scant < 10 ml Lochia Color: Rubra/Red - Abdomen Description: Tender, Soft Hernia Present: No Fundal Description: Firm, Midline Fundal Height: u/u - u/2 Objective-Diagnostic Laboratory: 07/02/19 05:57 Assessment and Plan(PN) - Assessment and Plan (1) Vaginal delivery Is this a current diagnosis for this admission?: Yes (2) Encounter for induction of labor Is this a current diagnosis for this admission?: Yes (3) Intrauterine growth restriction (IUGR) affecting care of mother Qualifiers: Fetus number: single or unspecified fetus Is this a current diagnosis for this admission?: Yes - Time Spent with Patient Time with patient: Less than 15 minutes Medications reviewed and adjusted accordingly: Yes - Disposition Anticipated Discharge: Home Within: within 24 hours
--- NOTE | 2019-07-03 11:40 | PDOC DISCHARGE SUMMARY ---
Impression - Admit/DC Date/PCP Admission Date/Primary Care Provider: 06/29/19 19:50 SCOTT HINSON MD Discharge Date: 07/03/19 - Discharge Diagnosis (1) Vaginal delivery Is this a current diagnosis for this admission?: Yes (2) Encounter for induction of labor Is this a current diagnosis for this admission?: Yes (3) Intrauterine growth restriction (IUGR) affecting care of mother Is this a current diagnosis for this admission?: Yes - Additional Information Discharge Diet: As Tolerated, Regular Discharge Activity: Activity As Tolerated, No Lifting Over 10 Pounds, No Lifting/Push/Pulling Referrals: [id number] [Provider Group] Home Medications: Pnv No.95/Ferrous Fum/Folic AC [ Vitamins Tablet] 1 each PO DAILY #30 tablet 11/01/18 HPI Gestational Age: 39 Reason(s) for Admission: Induction of Labor Admission Note: IUGR Procedures: NST, Ultrasound Intrapartum Procedure(s): Spontaneous Vaginal Delivery Complication(s): Laceration-Labial Laceration-Degree: 1st Hospital Course Hospital Course: routine Results Laboratory Results: WBC 17.5 10^3/uL (4.0-10.5) H 07/02/19 05:57 RBC 4.17 10^6/uL (3.72-5.28) 07/02/19 05:57 Hgb 11.2 g/dL (12.0-15.5) L 07/02/19 05:57 Hct 33.1 % (36.0-47.0) L 07/02/19 05:57 MCV 79 fl (80-97) L 07/02/19 05:57 MCH 26.9 pg (27.0-33.4) L 07/02/19 05:57 MCHC 33.8 g/dL (32.0-36.0) 07/02/19 05:57 RDW 14.5 % (11.5-14.0) H 07/02/19 05:57 Plt Count 215 10^3/uL (150-450) 07/02/19 05:57 Lymph % (Auto) 14.0 % (13-45) 06/29/19 20:50 [place] % (Auto) 5.4 % (3-13) 06/29/19 20:50 Eos % (Auto) 0.7 % (0-6) 06/29/19 20:50 Baso % (Auto) 0.1 % (0-2) 06/29/19 20:50 Absolute Neuts (auto) 10.9 10^3/uL (1.7-8.2) H 06/29/19 20:50 Absolute Lymphs (auto) 1.9 10^3/uL (0.5-4.7) 06/29/19 20:50 Absolute Monos (auto) 0.7 10^3/uL (0.1-1.4) 06/29/19 20:50 Absolute Eos (auto) 0.1 10^3/uL (0.0-0.6) 06/29/19 20:50 Absolute Basos (auto) 0.0 10^3/uL (0.0-0.2) 06/29/19 20:50 Seg Neutrophils % 79.8 % (42-78) H 06/29/19 20:50 Urine Color YELLOW 06/29/19 20:05 Urine Appearance TURBID 06/29/19 20:05 Urine pH 6.0 (5.0-9.0) 06/29/19 20:05 Ur Specific [place] 1.029 06/29/19 20:05 Urine Protein 30 mg/dL (NEGATIVE) H 06/29/19 20:05 Urine Glucose (UA) NEGATIVE mg/dL (NEGATIVE) 06/29/19 20:05 Urine Ketones NEGATIVE mg/dL (NEGATIVE) 06/29/19 20:05 Urine Blood NEGATIVE (NEGATIVE) 06/29/19 20:05 Urine Nitrite NEGATIVE (NEGATIVE) 06/29/19 20:05 Urine Bilirubin NEGATIVE (NEGATIVE) 06/29/19 20:05 Urine Urobilinogen 4.0 mg/dL (<2.0) H 06/29/19 20:05 Ur Leukocyte Esterase LARGE (NEGATIVE) H 06/29/19 20:05 Urine Ascorbic Acid NEGATIVE (NEGATIVE) 06/29/19 20:05 Urine Opiates Screen NEGATIVE 06/29/19 20:05 Urine Methadone Screen NEGATIVE 06/29/19 20:05 Ur Barbiturates Screen NEGATIVE 06/29/19 20:05 Ur Phencyclidine Scrn NEGATIVE 06/29/19 20:05 Ur Amphetamines Screen NEGATIVE 06/29/19 20:05 U Benzodiazepines Scrn NEGATIVE 06/29/19 20:05 Urine Cocaine Screen NEGATIVE 06/29/19 20:05 U Marijuana (THC) Screen NEGATIVE 06/29/19 20:05 RPR NONREACTIVE (NONREACTIVE) 06/29/19 20:50 Blood Type A POSITIVE 06/29/19 20:50 Antibody Screen NEGATIVE 06/29/19 20:50 Plan Health Concerns: routine Plan of Treatment: no complications Goals: healthy baby and mom Time Spent: Less than 30 Minutes
[2019-07-03 14:09] VITALS: BP 123/70
--- NOTE | 2019-07-07 09:31 | Delivery Summary ---
Del Sum A-C Datetime Report Generated by CPN: 07/07/2019 09:31 DELIVERY PERSONNEL DELIVERY PERSONNEL: [id number] Delivery Doctor:: Anna Morton MD Labor and Delivery Nurse:: Brynn Romano RNlocal company refrigerated truck driver Nurse:: Tatum Gill RN Underground [employer] Section Foreman/FORM BUILDER: Lilia García, ST MATERNAL INFORMATION Delivery Anesthesia: Epidural Medications After Delivery: Pitocin Bolus-Please Comment Meds After Delivery Comment: Pitocin 20 units/1000ml NSS Estimated Blood Loss (ml): 200 Delivery QBL: 100 Maternal Complications: None LABOR SUMMARY EDC: 07/07/2019 00:00 No. Babies in Womb: 1 Attempted: No Labor Anesthesia: Epidural LABOR INFORMATION Reason for Induction: Intrauterine Growth Retardation Onset of Labor: 06/30/2019 16:35 Complete Dilatation: 07/01/2019 05:49 Cervical Ripening Agents: Cervidil; [place] Balloon Oxytocin: Induction Group B Beta Strep: negative Antibiotics # of Doses: n/a Antibiotics Time of Last Dose: n/a Name of Antibiotic Given: n/a Steroids Given: None Reason Steroids Not Administered: Not Applicable MEMBRANES Membranes Rupture Method: Artificial Rupture of Membranes: 06/30/2019 16:35 Length of Rupture (hr): 13.58 Amniotic Fluid Color: Clear Amniotic Fluid Amount: Large Amniotic Fluid Odor: Normal STAGES OF LABOR Stage 1 hr: 13 Stage 1 min: 14 Stage 2 hr: 0 Stage 2 min: 21 Stage 3 hr: 0 Stage 3 min: 2 Total Time in Labor hr: 13 Total Time in Labor min: 37 VAGINAL DELIVERY Episiotomy: None Laceration #1: None Laceration Extension #1: N/A Laceration Repair: Not Applicable Sponge Count Correct: N/A Sharps Count Correct: N/A CSECTION DELIVERY Primary Indication: N/A Secondary Indication: N/A CSection Incidence: N/A Labor: N/A Elective: N/A CSection Incision: N/A BABY A INFORMATION Infant Delivery Date/Time: 07/01/2019 06:10 Method of Delivery: Vaginal Method of Delivery: Vaginal Nurse Controlled Delivery: No Born in Route : No : N/A Forceps: N/A Vacuum Extraction: N/A Shoulder Dystocia : No PRESENTATION/POSITION BABY A Presentation: Cephalic Cephalic Presentation: Vertex Vertex Position: Left Occipital Anterior Breech Presentation: N/A PLACENTA INFORMATION BABY A Placenta Delivery Time : 07/01/2019 06:12 Placenta Method of Delivery: Spontaneous Placenta Status: Delivered SCORES BABY A Heart Rate 1 min: >100 bpm Resp Effort 1 min: Good Cry Reflex Irritability 1 min: Cough or Sneeze or Pulls Away Muscle Tone 1 min: Active Motion Color 1 min: Blue/Pale Resuscitation Effort 1 min: Tactile Stimulation SCORE 1 MIN: 8 Heart Rate 5 min: >100 bpm Resp Effort 5 min: Good Cry Reflex Irritability 5 min: Cough or Sneeze or Pulls Away Muscle Tone 5 min: Active Motion Color 5 min: Body [place], Extremities Blue Resuscitation Effort 5 min: Tactile Stimulation SCORE 5 MIN: 9 INFANT INFORMATION BABY A Gestational Age at Delivery: 39.1 Gestational Status: Full Term- 39- 40.6 Weeks Infant Outcome : Liveborn Condition : Stable Infant Sex: Male IDENTIFICATION BABY A Verification Date/Time: 07/01/2019 06:20 ID Band Number: [id number] Mother's Name Verified: Yes Infant RN Verifying : , RN and MDandyRomano, RN WEIGHT/LENGTH BABY A Infant Birthweight (gm): 2615 Weight (lb): 5 Weight (oz): 12 Infant Length (in): 18.00 Length (cm): 45.72 CORD INFORMATION BABY A No. Cord Vessels: 3 Nuchal Cord : N/A Cord Blood Taken: Yes-For Storage (Mom's Blood type +) Infant Suction: Mouth ASSESSMENT BABY A Infant Complications: None Physical Findings at Delivery: Within Normal Limits Infant Respirations: Appears Normal Skin to Skin: Yes [employer]/ALS Called : No Infant Care By: Toya Gill RN Transferred To: Remains with Mother SIGNATURES Signature: with User ID: [email or web address]
== END 2019-07-03 14:20 | disposition home or self-care (01) | DRG 807 ==
LOC: LR 19:50 → 2S 07-01 13:00
PROVIDERS: ADMIT Obstetrics & Gynecology; ATTEND Obstetrics & Gynecology
PROC: 10E0XZZ Delivery of Products of Conception, External Approach (ICD-10-PCS; principal; 2019-07-01)
PROC: 0HQ9XZZ Repair Perineum Skin, External Approach (ICD-10-PCS; 2019-07-01)
PROC: 3E0234Z Introduction of Serum, Toxoid and Vaccine into Muscle, Percutaneous Approach (ICD-10-PCS; 2019-07-03)
DX: O36.5930 Maternal care for other known or suspected poor fetal growth, third trimester, not applicable or unspecified (principal); Z37.0 Single live birth; O70.0 First degree perineal laceration during delivery; Z3A.39 39 weeks gestation of pregnancy; Z23 Encounter for immunization
CPT/HCPCS: 36415; 80307; 81005; 85025; 85027; 86592; 86850; 86900; 86901; 90707; 90715; J2270; J2405; J2590; J3010; J3490

== ENCOUNTER 2020-04-26 18:05 | Emergency (ER) | payer MEDICAID ==
--- NOTE | 2020-04-26 19:02 | ER Document Report ---
ED Medical Screen (RME) - General Chief Complaint: Vag Bleeding, +preg <12wks Stated Complaint: VAGINAL BLEEDING/9 WKS PREG Time Seen by Provider: 04/26/20 18:57 Primary Care Provider: SCOTT HINSON MD [Primary Care Provider] - Follow up as needed Notes: Patient presents complaining of vaginal bleeding and cramping that started yesterday. Patient states she is 9 weeks G2, P1. Patient reports occasionally feeling lightheaded. Patient reports bright red bleeding. I have greeted and performed a rapid initial assessment of this patient. A comprehensive ED assessment and evaluation of the patient, analysis of test results and completion of the medical decision making process will be conducted by additional ED providers. TRAVEL OUTSIDE OF THE [place] IN LAST 30 DAYS: No - Related Data Allergies/Adverse Reactions: No Known Allergies Allergy (Verified 11/10/18 18:41) Past Medical History Renal/ Medical History: Denies: Hx Peritoneal Dialysis - Immunizations Immunizations up to date: Yes Physical Exam - Vital signs Vitals: Temp Pulse Resp BP Pulse Ox 98.2 F 71 20 127/61 H 100 04/26/20 18:21 04/26/20 18:21 04/26/20 18:21 04/26/20 18:21 04/26/20 18:21 - Abdominal Tenderness: Tender - Lower pelvic tenderness Course - Vital Signs Vital signs: Temp Pulse Resp BP Pulse Ox 98.2 F 71 20 127/61 H 100 04/26/20 18:21 04/26/20 18:21 04/26/20 18:21 04/26/20 18:21 04/26/20 18:21 Doctor's Discharge - Discharge Referrals: SCOTT HINSON MD [Primary Care Provider] - Follow up as needed
[2020-04-26 19:54] LABS: ABSOLUTE EOSINOPHILS # (AUTO) 0.1 10^3/uL (0.0-0.6); ABSOLUTE LYMPHOCYTES (AUTO) 2.7 10^3/uL (0.5-4.7); ABSOLUTE MONOCYTES (AUTO) 0.5 10^3/uL (0.1-1.4); ABSOLUTE NEUT (AUTO) 6.6 10^3/uL (1.7-8.2); BASOPHILS % (AUTO) 0.3 % (0-2); EOSINOPHILS % (AUTO) 0.6 % (0-6); HEMATOCRIT 36.2 % (36.0-47.0); HEMOGLOBIN 12.5 g/dL (12.0-15.5); LYMPHOCYTES % (AUTO) 27.3 % (13-45); MEAN CORPUSCULAR HGB CONC 34.5 g/dL (32.0-36.0); MEAN CORPUSCULAR VOLUME 81 fl (80-97); MONOCYTES % (AUTO) 5.4 % (3-13); PLATELET COUNT 218 10^3/uL (150-450); RED BLOOD COUNT 4.45 10^6/uL (3.72-5.28); RED CELL DISTRIBUTION WIDTH 14.6 % (11.5-14.0); SEGMENTED NEUTROPHILS % (AUTO) 66.4 % (42-78); TOTAL CELLS COUNTED % (AUTO) 100 %
--- NOTE | 2020-04-26 19:54 | RADIOLOGY REPORT (SQ) ---
EXAM DESCRIPTION: U/S OB TRANSVAGINAL W/O DOP IMAGES COMPLETED DATE/TIME: 04/26/2020 7:45 pm REASON FOR STUDY: vag bleeding, cramping TECHNIQUE: Transabdominal static and realtime grayscale images acquired of the pelvis. Additional se lected spectral and color Doppler images recorded. All images stored on PACs. bHCG: Not available. CLINICAL DATES: LMP 02/19/2020 9 weeks 4 days LIMITATIONS: None. FINDINGS: FETUS: Single Living intrauterine . ULTRASOUND EGA: 10 weeks 1 day ULTRASOUND FABI: 11/21/2020 EFW: Not applicable less than 20 weeks. CRL: 3.3 cm FHR: 160 beats per minute. SURVEY: Too early to assess. AMNIOTIC FLUID: Adequate amount. PLACENTA: Not yet developed due to early gestation. SUBCHORIONIC BLEED: No SIZE OF BLEED: Not applicable. UTERUS: No masses. No anomalies. CERVICAL LENGTH: 3 cm. Closed. RIGHT ADNEXA: Ovary not seen. No adnexal free fluid. No adnexal masses. LEFT ADNEXA: Ovary not seen. No adnexal free fluid. No adnexal masses. FREE FLUID: None. OTHER: No other significant finding. IMPRESSION: LIVING INTRAUTERINE . EGA 10 weeks 1 day Trimester of : First trimester - 0 to 13 weeks. TECHNICAL DOCUMENTATION: JOB ID: [id number] [employer]- All Rights Reserved rev Reading location - IP/workstation name: [email or web address]
[2020-04-26 20:03] LABS: APPEARANCE,URINE CLEAR; BILIRUBIN,URINE NEGATIVE (NEGATIVE); COLOR,URINE YELLOW; GLUCOSE, URINE NEGATIVE (NEGATIVE); KETONES,URINE NEGATIVE (NEGATIVE); LEUKOCYTE ESTERASE,URINE SMALL (NEGATIVE); NITRITE,URINE NEGATIVE (NEGATIVE); PROTEIN,URINE 30 mg/dL (NEGATIVE); URINE SPECIFIC GRAVITY 1.031
--- NOTE | 2020-04-26 21:12 | ER Document Report ---
ED General - General Chief Complaint: Vag Bleeding, +preg <12wks Stated Complaint: VAGINAL BLEEDING/9 WKS PREG Time Seen by Provider: 04/26/20 18:57 Primary Care Provider: SCOTT HINSON MD [ACTIVE STAFF] - Follow up as needed TRAVEL OUTSIDE OF THE [place] IN LAST 30 DAYS: No - HPI Notes: Patient is a 24-year-old female, G2, P1 at approximately 10 weeks gestation, who presents emergency department for evaluation of vaginal bleeding. Is been ongoing for the last 4 to 5 days. Is primarily when she stands or urinates. It is bright red. She really is not requiring a pad. She had similar bleeding with her last as well throughout the entire course of her . She has minimal pain in her right pelvis that she describes as sharp. She said no fevers or chills. No nausea or vomiting. Normal bowel movements, normal urination. - Related Data Allergies/Adverse Reactions: No Known Allergies Allergy (Verified 11/10/18 18:41) Home Medications: None Past Medical History - General Information source: Patient - Social History Smoking Status: Never Smoker Frequency of alcohol use: None Drug Abuse: None Family History: Reviewed & Not Pertinent - Past Medical History Cardiac Medical History: Reports: None Pulmonary Medical History: Reports: None Renal/ Medical History: Denies: Hx Peritoneal Dialysis Malignancy Medical History: Reports: None GI Medical History: Reports: None - Immunizations Immunizations up to date: Yes Review of Systems - Review of Systems Constitutional: No symptoms reported EENT: No symptoms reported Cardiovascular: No symptoms reported Respiratory: No symptoms reported Gastrointestinal: No symptoms reported Genitourinary: No symptoms reported Female Genitourinary: See HPI Musculoskeletal: No symptoms reported Skin: No symptoms reported Neurological/Psychological: No symptoms reported Physical Exam - Vital signs Vitals: Temp Pulse Resp BP Pulse Ox 98.2 F 71 20 127/61 H 100 04/26/20 18:21 04/26/20 18:21 04/26/20 18:21 04/26/20 18:21 04/26/20 18:21 - Notes Notes: Vital signs reviewed, please refer to chart. Head is normocephalic, atraumatic. Pupils equal round, reactive to light. Neck is supple without meningismus. Heart is regular rate and rhythm. Lungs are clear to auscultation bilaterally. Abdomen is soft, nontender, normoactive bowel sounds throughout. Extremities without cyanosis, clubbing. Posterior calves are nontender. Peripheral pulses are equal. Skin is warm and dry. Patient is awake, alert, neurological exam is nonfocal. Course - Re-evaluation Re-evalutation: 04/26/20 21:19 Patient presents emergency department for evaluation. Laboratory investigations are ordered as through triage. Ultrasound reveals an intrauterine at approximately 10 weeks with appropriate cardiac activity. Her hemoglobin is stable. She is Rh+ so no RhoGam is indicated. Patient feels comfortable with discharge. Will consider home. She is to follow closely with [facility]. She is return the emergency department for worsening or new concerning symptoms of any sort. - Vital Signs Vital signs: Temp Pulse Resp BP Pulse Ox 98.2 F 71 20 127/61 H 100 04/26/20 18:21 04/26/20 18:21 04/26/20 18:21 04/26/20 18:21 04/26/20 18:21 - Laboratory Results Result Diagrams: 04/26/20 19:15 Laboratory Results Interpreted: 04/26/20 04/26/20 04/26/20 19:10 19:15 19:15 RDW 14.6 H Beta HCG, Quant 52808.00 H Urine Protein 30 H Urine Urobilinogen 4.0 H Ur Leukocyte Esterase SMALL H Critical Laboratory Results Reviewed: No Critical Results - Radiology Results Radiology Results Interpreted: 04/26/20 21:20 Obstetrics Ultrasound 04/26/20 19:00 IMPRESSION: LIVING INTRAUTERINE . EGA 10 weeks 1 day Trimester of : First trimester - 0 to 13 weeks. Critical Radiology Results Reviewed: No Critical Results Discharge - Discharge Clinical Impression: Vaginal bleeding during Condition: Stable Disposition: HOME, SELF-CARE Instructions: Bleeding During Early ([facility]) Additional Instructions: No clear cause was found your bleeding today. You are Rh+, so no RhoGam needs to be given. Please follow-up closely with [facility]. If you develop bleeding that goes heavier than 1 pad an hour for 4 to 6 hours, dizziness, increased pain, or any other new or concerning symptoms, please return immediately to the emergency department for evaluation. Referrals: SCOTT HINSON MD [ACTIVE STAFF] - Follow up as needed
[2020-04-26 21:25] VITALS: BP 110/44
== END 2020-04-26 21:26 | disposition home or self-care (01) ==
LOC: ER 18:05
DX: O20.9 Hemorrhage in early pregnancy, unspecified (principal); Z3A.10 10 weeks gestation of pregnancy
CPT/HCPCS: 36415; 76817; 81001; 84702; 85025; 86900; 86901; 99284